=== PATIENT | male | born 1955 | race Caucasian/White ===

== ENCOUNTER 2017-03-21 10:40 | Emergency (ER) | payer MEDICARE, MEDICAID ==
[~2017-03-21] VITALS: Ht 175.3 cm; Wt 87.0 kg
[~2017-03-21 10:40] MED LIST: AMLO10TA80 PO; ATOR80TA PO; CARV3.1242 PO; IBUP-2030 PO; LISI-604 PO; PRAV20TA57 PO; RIVA20TA PO; SULF1TAB48 PO; TAMS0.4C31 PO
[2017-03-21 10:47] VITALS: BP 181/79
== END 2017-03-21 11:29 | disposition home or self-care (01) ==
LOC: ER 11:09
DX: R21 Rash and other nonspecific skin eruption (principal); L29.9 Pruritus, unspecified; I10 Essential (primary) hypertension; F32.9 Major depressive disorder, single episode, unspecified; I25.10 Atherosclerotic heart disease of native coronary artery without angina pectoris; I48.91 Unspecified atrial fibrillation; Z86.73 Personal history of transient ischemic attack (TIA), and cerebral infarction without residual deficits
CPT/HCPCS: 99283